=== PATIENT | male | born 1975 | race Caucasian/White ===

== ENCOUNTER 2020-06-13 07:22 | Inpatient (IN) | payer SELFPAY ==
[2020-06-13] VITALS (166 sets, daily range): BP systolic 148–152; BP diastolic 91–99; PULSE 115–126; TEMP 99–99.3; O2SAT 91–99
[~2020-06-13] VITALS: Ht 175.3 cm; Wt 118.6 kg
[2020-06-13 08:03] LABS: BASO % 0.2 % (0.0-2.0); EOS % 0.2 % (0-4.0); GRAN # 9.3 (1.4-6.5); GRAN % 83.8 % (42.2-75.2); HEMATOCRIT 44.9 % (42.0-52.0); HEMOGLOBIN 15.4 g/dl (13.5-18.0); LYMPH % 8.6 % (20.0-51.0); MEAN CELL VOLUME 87 fl (80.0-100.0); MEAN CORPUSCULAR HEMOGLOBIN 30 pg (27.0-31.0); MEAN CORPUSCULAR HGB CONC 34 g/dl (33.0-37.0); MEAN PLATELET VOLUME 9.5 fl (7.4-10.4); MONO # 0.8 (0.1-0.6); MONO % 6.8 % (1.7-9.3); PLATELET COUNT 204 K/mm3 (130-400); RED BLOOD COUNT 5.14 M/mm3 (4.20-5.60); REDCELL DISTRIBUTION WIDTH-CV 12.4 % (11.5-14.5)
[2020-06-13 08:06] LABS: ALBUMIN 4.2 gm/dL (3.5-5.0); BILIRUBIN,TOTAL 1.2 mg/dL (0.0-1.0); C-REACTIVE PROTEIN 7.4 mg/dL (0.0-0.9); CALCIUM 9.5 mg/dL (8.4-10.2); CREATININE, serum 0.75 (0.66-1.25); POTASSIUM 4.1 mmol/L (3.4-5.0); TOTAL PROTEIN 8.1 gm/dL (6.4-8.2)
[2020-06-13 10:27] LABS: TROPONIN-I < 0.012 ng/mL (0.000-0.035)
[2020-06-13] MEDS ORDERED: NORCO 325 MG-51 TAB PO (10:55)
[2020-06-13] MEDS ORDERED: ZITHROMAX Z PA250 MG PO (10:55)
--- NOTE | 2020-06-13 14:15 | NUR ---
Patient arrives to ICU room 17. He is on 2L O2. Pt assessed and covid screening questions are asked. He reports traveling to [place] in Middle of May and to [place] around 03 of June. I call hospitalist to make them aware, covid test is ordered and patient is placed in isolation.
--- NOTE | 2020-06-13 15:20 | NUR ---
The patient is a PUI. Medication Aide stood outside the door to complete initial intake. The patient lives with this girlfriend, Kristine Etienne. The patient denies DME use and is independent with ADLs. The pateint does not have a PCP. ALVARADO provided a list of physicians that serve the [place] area. The patient will receive medications at [facility] pharmacy. The patient does not have advanced directives. He wanted to fill out a DPOA-HC form. ALVARADO provided the form. ALVARADO and the patient's nurse witnessed. He designated his girlfriend, Kristine Etienne. A copy was placed in the chart and some copies were provided to the patient. The patient plans to return home at discharge. ALVARADO will continue to follow.
--- NOTE | 2020-06-13 21:00 | NUR ---
Patient reports right mid/lower back pain which is rated at a 9/10; quality and location of pain has remained unchanged since arrival. Patient is tachypneic due to the pain of taking deep breath. Has incentive spirometer at bedside and reports utilizing this despite pain. PRN morphine administered. All other questions and concerns addressed at this time. Will continue to monitor.
[2020-06-14] VITALS (510 sets, daily range): BP systolic 145–178; BP diastolic 67–109; PULSE 96–113; TEMP 98–101.9; O2SAT 59–100
--- NOTE | 2020-06-14 00:05 | NUR ---
Reporing 7/10 right back pain. Provided tylenol and a warm pack. Patient experienced some relief immediately with warm pack. Will continue to monitor.
[2020-06-14 06:50] LABS: CALCIUM 9.1 mg/dL (8.4-10.2); CREATININE, serum 0.81 (0.66-1.25); POTASSIUM 4.4 mmol/L (3.4-5.0)
[2020-06-14 06:53] LABS: BASO % 0.3 % (0.0-2.0); EOS % 0.1 % (0-4.0); GRAN # 8.2 (1.4-6.5); GRAN % 77.9 % (42.2-75.2); HEMATOCRIT 41.6 % (42.0-52.0); HEMOGLOBIN 13.6 g/dl (13.5-18.0); LYMPH # 1.2 (1.2-3.4); LYMPH % 11.7 % (20.0-51.0); MEAN CELL VOLUME 89 fl (80.0-100.0); MEAN CORPUSCULAR HEMOGLOBIN 29 pg (27.0-31.0); MEAN CORPUSCULAR HGB CONC 33 g/dl (33.0-37.0); MEAN PLATELET VOLUME 9.4 fl (7.4-10.4); MONO % 9.5 % (1.7-9.3); PLATELET COUNT 213 K/mm3 (130-400); RED BLOOD COUNT 4.66 M/mm3 (4.20-5.60); REDCELL DISTRIBUTION WIDTH-CV 12.5 % (11.5-14.5)
--- NOTE | 2020-06-14 09:47 | NUR ---
Side Seam Envelope Machine Operator attended clinical rounds with the team. A chest CT was ordered. Covid-19 test pending. Will continue to follow.
--- NOTE | 2020-06-14 16:16 | NUR ---
Report called to Chloe GONZALEZ at 1518. Patient transferred to medical unit via wheelchair with IV infusing and belongings in hand at 1616. Patient short of breath with exertion but stable, tolerated room air well.
--- NOTE | 2020-06-14 16:30 | NUR ---
Patient arrived to the floor at this time. He is stable, alert and oriented. Confortable in new room at this time, awaiting dinner. Continuing to monitor. Call light is in reach.
--- NOTE | 2020-06-14 18:14 | NUR ---
Went to check on patient at this time. He was up ambulating to the restroom at this time. States he feels much better than he did before. He was short of breath from ambulating but oxygen saturation was 93% on room air. Breaths continue to be shallow due to pain on inspirtation, rate at 27-30. Bowel sounds were difficult to hear. Pulses easily palpable both radial and pedal. Reported minor, uncomfortable pain in mid back with respirations. Denies need for pain medication. Tmp was 101.9, tylenol will be provided for this. No other needs expressed, ice water provided for patient. Call light is in reach.
--- NOTE | 2020-06-14 19:30 | NUR ---
Received report from Chloe. Seen patient awake, sitting in bed. With IV on right AC infusing NS @ 75ml/hr. On room air. Afebrile. Denies pain right now. Bases of lungs are diminished. He is independent in the room. He is alert and oriented.
[2020-06-15 00:08] VITALS: BP 155/78; PULSE 108; TEMP 101.6
--- NOTE | 2020-06-15 01:00 | NUR ---
Patient is febrile with temp of 101.6F. Tylenol PRN given. Denies pain at this time.
[2020-06-15 04:26] VITALS: BP 147/863; PULSE 100; TEMP 98.8
[2020-06-15 06:10] VITALS: TEMP 99.1
--- NOTE | 2020-06-15 06:26 | NUR ---
Patient had a febrile episode last night. Latest temp now is 99.1F. Denies any pain. Will endorse to day shift nurse.
[2020-06-15 09:45] VITALS: BP 149/82; PULSE 101; TEMP 99.6
[2020-06-15 12:45] VITALS: BP 148/81; PULSE 107; TEMP 100.3
--- NOTE | 2020-06-15 19:29 | NUR ---
Pt assessment completed and charted. Medications administered per JAN. Pt is A&O, independent in room, on room air, breathing is even and unlabored. Pt has dry cough and an episode of fever, received tylenol PRN. Pt denies pain, dizziness, SOB, N/V/D, chest pain, abdominal pain. Pt states he feels better today. RAC IV flushes w/o complications. Pulses strong bilaterally. BS active. Pt denies other needs. Requested to shower this evening. Call light within reach.
--- NOTE | 2020-06-15 20:00 | NUR ---
At time of assessment, patient is alert and oriented with no complaints of pain. He has a temperature of 101.7 and 650 mg Tylenol is administered. Heart sounds are tachy and regular, lungs are clear, no edema present. Patient is breathing quickly but does not appear to be in any distress and states he feels great compared to when he was admitted. Will continue to monitor.
[2020-06-15 20:53] VITALS: BP 138/77; PULSE 109; TEMP 101.7
[2020-06-16] VITALS (7 sets, daily range): BP systolic 134–160; BP diastolic 66–93; PULSE 86–99; TEMP 98.3–100.4
--- NOTE | 2020-06-16 06:20 | NUR ---
Patient has had an uneventful, restful night. His TMAX was 101.7 and PO Tylenol was administered. He has not had any difficulty breathing or maintaing 02 sats on RA. Will continue to monitor.
--- NOTE | 2020-06-16 19:42 | NUR ---
Pt assessment completed and charted, medication administered per jan. pt is A&O, independent in room, on room air, satting well. Tachypneic breathing, UL bilaterally clear, bases bilaterally diminished. Pt has frequent dry cough. RAC IV flushes w/o complications. BS active, 1+ edema to BLE. Heart RRR, occasionally tachy. Pt stated he had a headache earlier this morning but it went away after nap. Denies other pain, dizziness, N/V/D, abdominal pain or chest pain. No other needs expressed. Pt cooperative w/ cares. Pt temps 99.2/99.3/99.5 today. No tylenol administered throughout day.
--- NOTE | 2020-06-16 21:11 | NUR ---
Patient temp 101.1. Dr. Horvath notified, no new orders.
--- NOTE | 2020-06-17 02:25 | NUR ---
Patient independent. Patient first vitals check of shift temp was 101.1, Tylenol brought down to 100.4. Antibiotics given as ordered. Patient denies pain at this time. Patient was able to rest in bed this shifst.
[2020-06-17 05:30] VITALS: BP 146/80; PULSE 94; TEMP 100.2
[2020-06-17 09:45] VITALS: BP 125/93; PULSE 93; TEMP 98.5
[2020-06-17 11:51] VITALS: BP 133/78; PULSE 101; TEMP 98.9
--- NOTE | 2020-06-17 15:29 | NUR ---
Patient is alert and oriented. denies any pain at this time. Afebrile at this time.
[2020-06-17 16:00] VITALS: BP 148/84; PULSE 96; TEMP 99.7
[2020-06-17 20:00] VITALS: BP 129/79; PULSE 104; TEMP 98.8
[2020-06-18] VITALS: BP 128/80; PULSE 99; TEMP 101.2
--- NOTE | 2020-06-18 01:09 | NUR ---
PT'S TEMPERATURE AT BEGINNING OF SHIFT WAS 98.8 ORAL. AT MIDNIGHT HE WAS 101.2 ORAL. PT STILL HAS NON-PRODUCTIVE COUGH.
[2020-06-18 04:00] VITALS: BP 140/82; PULSE 93; TEMP 98.4
--- NOTE | 2020-06-18 08:50 | NUR ---
PT IN BED, REPORTS NO PAIN, REPORTS FRUSTRATION AT STILL BEING HERE AND HAVING HIS FEVER LAST NIGHT. PT OVERALL PLEASANT, AOX4, ASSESSMENT PERFORMED, VITALS TAKEN, BREAKFAST TAKEN IN. NO OTHER NEEDS AT THIS TIME.
[2020-06-18 08:54] VITALS: BP 143/78; PULSE 91; TEMP 99.2
[2020-06-18] MEDS ORDERED: TYLENOL 325MG325 MG PO (10:58)
[2020-06-18] MEDS ORDERED: ZESTRIL 10MG10 MG PO (10:59)
[2020-06-18] MEDS ORDERED: OMNICEF 300MG300 MG PO (10:59)
[2020-06-18] MEDS ORDERED: LEVAQUIN 750MG750 M1 PO (10:59)
[2020-06-18] MEDS ORDERED: PROAIR HFA0.09 MG/AC IH (10:59)
[2020-06-18 11:33] VITALS: BP 120/70; PULSE 111; TEMP 98.9
--- NOTE | 2020-06-18 13:15 | NUR ---
pt given discharge education. pt iv discontinued. pt gathered pt belongings and walked out with me. pt instructed to wear mask and not touch anything. pt escorted out er entrance.
== END 2020-06-18 13:15 | disposition home or self-care (01) | DRG 193 ==
LOC: COL.ER 07:22 → EDBD 07:22 → IMCU 13:50 → MEDICAL 13:50
PROVIDERS: Family Medicine; Physician Assistant; ADMIT Student in an Organized Health Care Education/Training Program
DX: J18.9 Pneumonia, unspecified organism (principal); J96.01 Acute respiratory failure with hypoxia; J90 Pleural effusion, not elsewhere classified; J98.11 Atelectasis; I10 Essential (primary) hypertension; Z20.828 Contact with and (suspected) exposure to other viral communicable diseases; Z82.49 Family history of ischemic heart disease and other diseases of the circulatory system
CPT/HCPCS: 99222-AI; 99232-AI; 99233-AI; 99239; A9284; J0692; J1170; J1650; J1885; J1956; J2270; J2405; J7030; J7120; Q9967